=== PATIENT | female | born 1960 | race Caucasian/White ===

== ENCOUNTER 2019-03-30 16:17 | Outpatient (REF) | payer OTHER, SELFPAY ==
--- NOTE | 2019-03-30 | PAPFT_PTH ---
PATIENT: Simon Whitfield LOC: [facility] U#:[id number] AGE/SX: 58/F ROOM: RE03/30/[address]: Elif Gomez : 1960 BED: DIS: 03/30/2019 SPEC #: [id number] RECD: 04/02/19 11:22 STATUS: CARLOS REQ #: [id number] HAI: 03/30/19 00:[address]: Elif Gomez DEPT: [facility] Cytology RECD BY: Blanquita Carrillo Tissues: 1 - CX/ENDOCX FOR PAP SMEARS Procedures: PAP THIN PREP/[facility] Screening HPV DNA PROBE Comments: [id number]
== END 2019-03-30 16:37 ==
LOC: NCHCN 16:17
PROVIDERS: PCP Family Medicine; Visit Provider Family Medicine
DX: Z00.00 Encounter for general adult medical examination without abnormal findings (principal); Z12.4 Encounter for screening for malignant neoplasm of cervix; Z11.51 Encounter for screening for human papillomavirus (HPV)
CPT/HCPCS: 88142; 87624

== ENCOUNTER 2020-04-28 20:47 | Outpatient (REF) | payer OTHER, SELFPAY ==
[2020-05-01 09:02] LABS: SARS-CoV-2 RNA Undetected (Undetected); SARS-CoV-2 Specimen Source Nasopharynx
== END 2020-04-28 21:07 ==
LOC: LBO 20:47
PROVIDERS: PCP Family Medicine; Visit Provider Family Medicine
DX: Z11.59 Encounter for screening for other viral diseases (principal)
CPT/HCPCS: U0003

== ENCOUNTER 2021-03-20 15:07 | Outpatient (REF) | payer OTHER, SELFPAY ==
[2021-03-20 20:59] LABS: Abs Immature Grans 0.02 10^3/uL (0.0-0.06); Absolute Basophil Count 0.05 10^3/uL (0.0-0.2); Absolute Eosinophil Count 0.12 10^3/uL (0.0-0.7); Absolute Lymphocyte Count 1.96 10^3/uL (1.2-3.4); Absolute Monocyte Count 0.41 10^3/uL (0.1-0.8); Absolute Neutrophil Count 3.84 10^3/uL (1.2-6.7); Basophils % 0.8; Eosinophils % 1.9; HCT 42.7 % (36.0-46.0); HGB 14.1 g/dL (11.2-15.7); Immature Grans % 0.3; Lymphocytes % 30.6; MCH 31.2 pg (27.0-33.0); MCV 94.5 fL (80-95); MPV 9.8 fL (8.0-11.0); Monocytes % 6.4; Nucleated RBC 0 %; Platelet Count 276 10^3/uL (130-400); RBC 4.52 10^6/uL (3.93-5.22); RDW 12.2 % (11.7-14.6); RDW-SD 42.5 fL
== END 2021-03-20 15:08 | disposition home or self-care (01) ==
LOC: NCHCN 15:07
PROVIDERS: PCP Family Medicine; Visit Provider Registered Nurse
DX: R10.9 Unspecified abdominal pain (principal)
CPT/HCPCS: 85025

== ENCOUNTER 2021-07-22 15:56 | Outpatient (REF) | payer OTHER, SELFPAY ==
--- OUTSIDE RECORDS SUMMARY | 2021-07-22 16:00 | XMS_ITS | CCD ---
:1960 Author Care Team Providers Name Role Phone VOLANSKY Attending Physician Unavailable Vital Signs Unknown or Not Available. Allergies Allergy Code Allergy Type Reaction Status PENICILLINS (CLASS) 82935 Drug allergy UNKNOWN Active ZITHROMAX 716738 Drug allergy NAUSEA/VOMITING Active SULFA (SULFONAMIDE 0 Drug allergy SWELLING Active ANTIBIOTICS) {Clinical monitoring unavailable} Procedures Unknown or Not Available. History of Immunizations Unknown or Not Available. Problems Unknown or Not Available. [facility] - Collect Date/Time : 05/19/2021 17:15 Test Name Code Test Result Test Units Test Ref Range SOURCE= Anterior nasal N/A Tier- CHRISSY N/A SARS COV2 RNA: 91189-4 NEGATIVE N/A REFERENCE RAN GE: NEGAT Active Medications Unknown or Not Available. Medications Administered During Visit Unknown or Not Available. Encounters Unknown or Not Available. Social History Smoking Status Code Start Date End Date Former smoker [id number] 1976 1995 Patient Decision Aids Unknown or Not Available. Discharge Instructions You were admitted to [facility] on 05/20/2021 18:58 You had the following tests done: [facility] You were discharged from [facility] on 05/20/2021 18:58 Should you have any questions prior to d ischarge, please contact a member of your healthcare team. If you have left [facility] and have any questions, please contact your primary care physician. Chief Complaint and Reason For Visit Unknown or Not Available. Function Status Unknown or Not Available. Plan of Care Unknown or Not Available. Referral/Transition of Care Unknown or Not Available.
--- OUTSIDE RECORDS SUMMARY | 2021-07-22 16:00 | XMS_ITS | CCD ---
:1960 Author Care Team Providers Name Role Phone TATEL Attending Physician Unavailable Vital Signs Unknown or Not Available. Allergies Allergy Code Allergy Type Reaction Status PENICILLINS (CLASS) 73207 Drug allergy UNKNOWN Active ZITHROMAX 768286 Drug allergy NAUSEA/VOMITING Active SULFA (SULFONAMIDE 0 Drug allergy SWELLING Active ANTIBIOTICS) {Clinical monitoring unavailable} Procedures Unknown or Not Available. History of Immunizations Unknown or Not Available. Problems Unknown or Not Available. Results COMPREHENSIVE METABOLIC PANEL (CMP) - Co llect Date/Time: 06/01/2021 08:37 Test Name Code Test Result Test Units Test Ref Range GLUCOSE 2345-7 94 mg/dL L=70 H=11 6 BUN 3094-0 13 mg/dL L=6 H=25 CREATININE 2160-0 0.81 mg/dL L=0.51 H=0.95 SODIUM SERUM 2951-2 141 mmol/L L=136 H=14 5 POTASSIUM SERUM 2823-3 4.8 mmol/L L=3.4 H =5.2 CHLORIDE SERUM 2075-0 103 mmol/L L=96 H= 110 CARBON DIOXIDE (CO2) 2028-9 32 mmol/L L=22 H=34 ANION GAP 34405-3 6.0 mmol/L CALCIUM SERUM 64616-9 9.5 mg/dL L=8.2 H=10.2 BILIRUBIN TOTAL 1975-2 0.5 mg/dL L=0.0 H =1.3 ALK. PHOS. 6768-6 78 U/L L=46 H=11 6 SGOT (AST) 1920-8 14 U/L L=15 H=37 SGPT (ALT) 1742-6 22 U/L L=12 H=78 TOTAL PROTEIN 2885-2 7.5 gm/dL L=6.0 H=8 .0 ALBUMIN 1751-7 4.3 gm/dL L=3.4 H=5. 0 AGE 60 years eGFR (non-Afr.Amer.) 35833-2 72 mL/min eGFR (Afr-Mosotho) 83656-1 87 mL/min Active Medications Unknown or Not Available. Medications Administered During Visit Unknown or Not Available. Encounters Encounter Diagnosis Diagnosis Code Start Date Abdominal pain [id number] 06/01/2021 Social History Smoking Status Code Start Date End Date Former smoker [id number] 1976 1995 Patient Decision Aids Unknown or Not Available. Discharge Instructions You were admitted to [facility] on 06/01/2021 08:24 with a principal diagnosis of Unspecified abdominal pain You had the following tests done: COMPREHENSIVE METABOLIC PANEL (CMP) You were discharged from [facility] on 06/01/2021 08:24 Should you have any questions prior to d ischarge, please contact a member of your healthcare team. If [facility] and have any questions, please contact your primary care physician. Chief Complaint and Reason For Visit Unknown or Not Available. Function Status Unknown or Not Available. Plan of Care Unknown or Not Available. Referral/Transition of Care Unknown or Not Available.
--- OUTSIDE RECORDS SUMMARY | 2021-07-22 16:00 | XMS_ITS | CCD ---
:1960 Author Care Team Providers Name Role Phone HOST Attending Physician Unavailable Vital Signs Unknown or Not Available. Allergies Allergy Code Allergy Type Reaction Status PENICILLINS (CLASS) 75183 Drug allergy UNKNOWN Active ZITHROMAX 259851 Drug allergy NAUSEA/VOMITING Active SULFA (SULFONAMIDE 0 Drug allergy SWELLING Active ANTIBIOTICS) {Clinical monitoring unavailable} Procedures Unknown or Not Available. History of Immunizations Unknown or Not Available. Problems Unknown or Not Available. Results COMPREHENSIVE METABOLIC PANEL (CMP) - Co llect Date/Time: 04/13/2021 18:53 Test Name Code Test Result Test Units Test Ref Range GLUCOSE 2345-7 116 mg/dL L=70 H=11 6 BUN 3094-0 13 mg/dL L=6 H=25 CREATININE 2160-0 0.90 mg/dL L=0.51 H=0.95 SODIUM SERUM 2951-2 138 mmol/L L=136 H=14 5 POTASSIUM SERUM 2823-3 4.2 mmol/L L=3.4 H =5.2 CHLORIDE SERUM 2075-0 101 mmol/L L=96 H= 110 CARBON DIOXIDE (CO2) 2028-9 32 mmol/L L=22 H=34 ANION GAP 85247-0 5.5 mmol/L CALCIUM SERUM 70954-1 9.7 mg/dL L=8.2 H=10.2 BILIRUBIN TOTAL 1975-2 0.3 mg/dL L=0.0 H =1.3 ALK. PHOS. 6768-6 77 U/L L=46 H=11 6 SGOT (AST) 1920-8 18 U/L L=15 H=37 SGPT (ALT) 1742-6 24 U/L L=12 H=78 TOTAL PROTEIN 2885-2 7.5 gm/dL L=6.0 H=8 .0 ALBUMIN 1751-7 4.2 gm/dL L=3.4 H=5. 0 AGE 60 years eGFR (non-Afr.Amer.) 49217-0 64 mL/min eGFR (Afr-Malagasy) 61772-5 77 mL/min CBC W/ DIFFERENTIAL - Collect Date/Time: 04/13/2021 18:53 Test Name Code Test Result Test Units Test Ref Range WBC 6690-2 6.06 th/cmm L=5.00 H=10.00 NEUT % 52.9 % L=40.0 H=80.0 LYMPH % 38.1 % L=10.0 H=50.0 MONO % 74711-7 5.9 % L=2.0 H=12.0 EOS % 2.0 % L=0.0 H=8. 0 BASO % 0.8 % L=0.0 H=3. 0 IG % 2514-8 0.3 % L=0.0 H=1. 1 NRBC % 04166-5 0.0 % L=0.0 H=0. 0 NEUT abs count 751-8 3.2 th/cmm L=1.6 H= 8.4 LYMPH abs count 731-0 2.3 th/cmm L=1.5 H =4.0 MONO abs count 742-7 0.4 th/cmm L=0.2 H= 1.0 EOS abs count 711-2 0.1 th/cmm L=0.0 H=0 .5 BASO abs count 704-7 0.1 th/cmm L=0.0 H= 0.2 IG abs count 11000-5 0.0 th/cmm L=0.0 H=0. 1 NRBC abs count 99640-4 0.0 mil/cmm L=0.0 H= 0.0 RBC 789-8 4.26 mil/cmm L=3.90 H=5.40 HEMOGLOBIN 718-7 13.4 gm/dL L=12.0 H=16.0 HEMATOCRIT 4544-3 41 % L=37 H=47 MCV 787-2 96 fL L=82 H=92 MCH 785-6 31.5 pg L=27.0 H=31.0 MCHC 786-4 32.8 % L=32.0 H=36.0 RDW-SD 788-0 44.0 fL L=39.0 H=49.0 PLATELET COUNT 777-3 261 th/cmm L=150 H= 450 LACOSAMIDE SERUM - Collect Date/Time: 18:53 Test Name Code Test Result Test Units Test Ref Range Lacosamide, S 86757-1 2.0 N/A 1.0 - 10.0 LAMOTRIGINE (LAMICTAL) - Collect Date/Ti me: 04/13/2021 18:53 Test Name Code Test Result Test Units Test Ref Range Lamotrigine, S 6948-4 11.9 N/A 2.5 - 15.0 Active Medications Unknown or Not Available. Medications Administered During Visit Unknown or Not Available. Encounters Encounter Diagnosis Diagnosis Code Start Date Localization-related symptomatic epilepsy [id number] 04/13/2021 Social History Smoking Status Code Start Date End Date Former smoker [id number] 1976 1995 Patient Decision Aids Unknown or Not Available. 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
[2021-07-23 08:05] LABS: TSH (W/Ref FT4) 0.84 uIU/mL (0.36-3.74)
== END 2021-07-22 15:57 | disposition home or self-care (01) ==
LOC: NCHCN 15:56
PROVIDERS: PCP Family Medicine; Visit Provider Nurse Practitioner Family
DX: R53.83 Other fatigue (principal); R63.5 Abnormal weight gain
CPT/HCPCS: 84443

== ENCOUNTER 2022-03-04 20:12 | Outpatient (REF) | payer OTHER, SELFPAY ==
[2022-03-08 11:59] LABS: Lyme Ab w Rflx to Lyme Confirm Negative (Negative)
== END 2022-03-04 20:13 | disposition home or self-care (01) ==
LOC: NCHCN 20:12
PROVIDERS: PCP Family Medicine; Visit Provider Family Medicine
DX: M25.59 Pain in other specified joint (principal)
CPT/HCPCS: 86618